=== PATIENT | male | born 1995 | race Caucasian/White ===

== ENCOUNTER 2016-08-31 06:30 | Inpatient (IN) | payer BC ==
[2016-08-31 07:45] VITALS: BP 136/75
[2016-08-31] MEDS ORDERED: Morphine Sulfate 4 mg/mL 1mL Syr IVP PRN (07:46)
[2016-08-31 08:22] LABS: % BASOPHILS 0.3 % (0.0-2.0); % EOSINOPHILS 0.1 % (0.0-5.0); % LYMPHOCYTES 5.5 % (20.0-50.0); % MONOCYTES 5.2 % (2.0-10.0); % NEUTROPHILS 88.9 % (40.0-80.0); HEMATOCRIT 42.7 % (39.0-49.0); MEAN CELL VOLUME 85.7 fl (80-99); MEAN PLATELET VOLUME 7.5 fl; NEUTROPHILE ABSOLUTE 14.2 Th/cmm (1.8-8.0); PLATELET COUNT 265 Th/cmm (150-400); RED BLOOD COUNT 4.99 Mil/cmm (4.30-5.70); RED CELL DISTRIBUTION WIDTH 11.6 % (11.5-20.0)
[2016-08-31 08:29] LABS: WHITE BLOOD COUNT 15.9 Th/cmm (4.8-10.8)
[2016-08-31 08:42] LABS: ALKALINE PHOSPHATASE 50 U/L (34-104); BILIRUBIN,TOTAL 0.7 mg/dL (0.3-1.0); BUN - UREA NITROGEN 16 mg/dL (7-25); CALCIUM SERUM 9.7 mg/dL (8.6-10.3); CARBON DIOXIDE 26.9 mEq/L (21.0-31.0); CHLORIDE 101 mEq/L (98-107); CREATININE - SERUM 0.8 mg/dL (0.7-1.3); GLUCOSE 113 mg/dL (70-105); POTASSIUM SERUM 3.9 mEq/L (3.5-5.1); SGOT 37 U/L (13-39); SGPT/ALT 32 U/L (7-52); SODIUM SERUM 134 mEq/L (136-145)
[2016-08-31] MEDS: Morphine Sulfate 2 mg/mL 1mL Syr IVP PRN ×2 (10:02→22:08)
[2016-08-31] MEDS: D5-0.45NS 1,000 ML IV SCH (10:10)
[2016-08-31 11:11] LABS: INR 1.09 (0.5-1.4); PROTHROMBIN TIME (TEST) 11.3 SECONDS (9.5-11.5)
[2016-08-31] MEDS: cefTRIAXone 1 GM in Sodium Chloride 0.9% 50 ML IV SCH (13:27)
[2016-08-31 15:12] LABS: URINE BILIRUBIN NEGATIVE (NEGATIVE); URINE BLOOD TRACE (NEGATIVE); URINE COLOR YELLOW; URINE GLUCOSE (UA) NEGATIVE (NEGATIVE); URINE KETONE NEGATIVE (NEGATIVE); URINE PROTEIN NEGATIVE (NEGATIVE); URINE UROBILINOGEN 0.2 E.U./dL (0.2 - 1.0)
[2016-08-31 15:13] LABS: URINE BACTERIA NONE SEEN /hpf (NONE SEEN); URINE EPITHELIAL CELLS NONE SEEN /lpf (FEW); URINE RBC NONE SEEN /hpf (0-5); URINE WBC NONE SEEN /hpf (0-5)
[2016-08-31 15:26] LABS: AMPHETAMINE URINE NEGATIVE (NEGATIVE); BARBITURATES URINE NEGATIVE (NEGATIVE); METHADONE URINE NEGATIVE (NEGATIVE)
[2016-08-31] MEDS ORDERED: Midazolam 1mg/ml 2 ml vial IV ONE (15:53)
[2016-08-31] MEDS ORDERED: fentaNYL Citrate 100 mcg/2mL Vial ONE ×2 (16:04→19:56)
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
[2016-08-31] MEDS ORDERED: Meperidine 50 mg/mL 1mL Syr ONE (17:37)
[2016-08-31] MEDS ORDERED: Lactated Ringer 1,000 ML IV SCH (17:45)
[2016-08-31] MEDS ORDERED: Lidocaine 2% Vial 20 mL Vial ONE (19:50)
[2016-08-31] MEDS ORDERED: Meperidine 25 mg/mL 1mL Syr ONE (20:41)
[2016-08-31] MEDS: Meperidine 25 mg/mL 1mL Syr IVP PRN ×2 (20:42→20:54)
[2016-08-31] MEDS ORDERED: ceFAZolin 1 GM in Sodium Chloride 0.9% 50 ML IV SCH (21:45)
--- NOTE | 2016-08-31 21:58 | Admit Criteria Form ---
Admit Criteria Forms - Admit Criteria Diagnosis: MUSCULOSKELETAL DISEASE [facility] Clinical Indications for Admission to Inpatient Care (Place 'X' for any and all applicable criteria): Hospital admission is needed for appropriate care of the patient because of 1 or more of the following: [X]I. Fracture, dislocation, or other musculoskeletal injury requiring inpatient care(medical) as indicated by 1 or more of the following(4)(5)(6)(7) [ ]a) Vertebral fracture requiring observation for instability or neurologic compromise (8) [ ]b) Compartment syndrome (proven or cannot be ruled out during observation level of care) (9) [ ]c) Limb-threatening injury [ ]d) Major injury requiring inpatient stabilization such as traction initiation or external fixation before internal fixation or closure of complex or open fracture [X]e) Major injury requiring inpatient treatment after emergency or observation level care (as appropriate) [ ]f) Severe pain requiring acute inpatient management [ ]g) Injury with suspicion of abuse or neglect (eg., child, dependent elderly) [ ]II. Newly diagnosed or suspected bone, joint, or orthopedic device infection (e.g., osteomyelitis, septic arthritis) needing 1 or more of the following(1)(2)(3) [ ]a) IV antibiotics that cannot be initiated in other than inpatient setting (e.g., patient too unstable or home infusion not available) [ ]b) Device removal or replacement [ ]c) Bone or soft tissue debridement [ ]d) Joint drainage (drain placement or repetitive aspirations) [ ]III. Severe rheumatologic disease (e.g., systemic lupus erythematosus, rheumatoid arthritis) with complications or comorbidities (Also use Optimal Recovery Care Criteria or General Recovery Criteria as appropriate on the basis of predominant condition), including 1 or more of the following( 10)(11)(12)(13) [ ]a) Severe infection (e.g., HOME OFFICE CLAIM SPECIALIST infection, sepsis) (14) [ ]b) Respiratory complications, including 1 or more of the following : [ ]i) Pleural effusion with respiratory compromise [ ]ii) Pulmonary hypertension with congestive failure [ ]iii) Respiratory failure [ ]iv) Pulmonary hemorrhage (15) [ ]c) Hematologic disease, including 1 or more of the following: [ ]i) Coagulopathy with bleeding [ ]ii) Thrombosis with hypercoagulable state [ ]iii) Thrombotic thrombocytopenic purpura [ ]d) Cerebritis with seizures, psychosis, or other severe abnormalities [ ]e) Vertebral destruction with monitoring needed for cervical myelopathy& possible respiratory compromise [ ]f) Exacerbation that requires inpatient treatment (e.g., intravenous immunosuppression) (16) [ ]g) Acute renal failure [ ]h) Cerebritis with seizures, psychosis, Altered mental status, or other neurologic abnormalities [ ]i) Pericardial effusion with tamponade [ ]j) Vertebral destruction, with monitoring needed for cervical myelopathy and possible respiratory compromise [ ]IV. Severe vasculitis with complications or comorbidities (Also use Optimal Recovery Care Criteria General Recovery Criteria as appropriate on the basis of predominant condition), including 1 or more of the following(11)(12)(17)(18)(19)(20) [ ]a) Exacerbation that requires inpatient treatment (e.g., intravenous immunosuppression) (19)(21) [ ]b) Pulmonary hemorrhage (15) [ ]c) HOME OFFICE CLAIM SPECIALIST vasculitis with seizures, psychosis, Altered mental status that is severe or persistent, or other severe abnormalities (22) [ ]d) Cerebral infarction [ ]e) Gastrointestinal ischemia [ ]f) Gangrene or threatened amputation [ ]g) Renal failure (16) [ ]h) Other significant complications of vasculitis ( eg., tissue or organ ischemia, organ dysfunction ) [ ]V. Severe myopathy as indicated by 1 or more of the following (28)(29) [ ]a) New onset of airway compromise or inability to swallow [ ]b) Respiratory deterioration with observation needed for impending respiratory failure [ ]c) Exacerbation that requires inpatient treatment (e.g., intravenous immunosuppression) [ ]. Severe crystal gout (arthropathy) indicated by 1 or more of the following (23)(24) [ ]a) Severe pain requiring acute inpatient management [ ]b) Exacerbation that requires inpatient treatment (e.g., intravenous treatment) [ ]VII.Rhabdomyolysis and 1 or more of the following (25)(26)(27) [ ]a) Acute renal failure [ ]b) Need for intravenous hydration after emergency or observation level care (as appropriate) [ ]c) Inability to maintain oral hydration [ ]d) Change in mental status [ ]e) Electrolyte abnormality that remains after emergency or observation level care (as appropriate) [ ]VIII Post amputation complication, as indicated by ANY ONE of the following [ ]a) Infection [ ]b) Dehiscence [ ]c) Myodesis failure [ ]IX. Severe pain requiring acute inpatient management due to musculoskeletal condition [ ]X. Musculoskeletal Disease and ALL of the following: [ ]a) Symptom or finding for which emergency and observation care have failed or are not considered appropriate (Use General Criteria: Observation Care as appropriate) [ ]b) Presence of ANY ONE of the following [ ]i) A General Admission Criteria [ ]ii) A Pediatric General Admission Criteria The [facility] content created by [facility] has been revised. The portions of the content which have been revised are identified through the use of italic text or in bold, and [facility] has neither reviewed nor approved the modified material. All other unmodified content is copyright [facility]. Please see references footnoted in the original [facility] edition 2016 Admit Criteria Met?: Yes
[2016-08-31 22:06] LABS: MEAN PLATELET VOLUME 7.3 fl
[2016-08-31 22:08] LABS: HEMATOCRIT 39.7 % (39.0-49.0); MEAN CELL VOLUME 87.1 fl (80-99); MEAN CORPUSCULAR HEMOGLOBIN 30.6 pg (26.0-30.0); MEAN CORPUSCULAR HGB CONC 35.1 pg (28.0-36.0); PLATELET COUNT 235 Th/cmm (150-400); RED BLOOD COUNT 4.56 Mil/cmm (4.30-5.70); RED CELL DISTRIBUTION WIDTH 11.6 % (11.5-20.0)
[2016-08-31 22:48] LABS: BAND NEUTROPHILE 1 % (0-10); NEUTROPHILS 96 % (40-80); PLATELET ESTIMATE ADEQUATE (NORMAL); TOTAL CELLS COUNTED 100
--- NOTE | 2016-09-01 01:48 | History & Physical ---
ADMIT DATE: 08/31/2016 The patient admitted from [place] ER for fracture tibia left lower extremity. The patient is currently undergoing surgery. [facility]# [id number]
[2016-09-01] MEDS: Morphine Sulfate 2 mg/mL 1mL Syr IVP PRN ×3 (01:54→10:23)
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
[2016-09-01 07:01] LABS: % EOSINOPHILS 0.2 % (0.0-5.0); % LYMPHOCYTES 4.7 % (20.0-50.0); % MONOCYTES 7.1 % (2.0-10.0); HEMATOCRIT 36.6 % (39.0-49.0); HEMOGLOBIN 12.7 gm/dL (13.2-17.3); MEAN CELL VOLUME 87.5 fl (80-99); MEAN CORPUSCULAR HEMOGLOBIN 30.4 pg (26.0-30.0); MEAN CORPUSCULAR HGB CONC 34.8 pg (28.0-36.0); MEAN PLATELET VOLUME 7.8 fl; NEUTROPHILE ABSOLUTE 14.7 Th/cmm (1.8-8.0); PLATELET COUNT 231 Th/cmm (150-400); RED BLOOD COUNT 4.19 Mil/cmm (4.30-5.70); RED CELL DISTRIBUTION WIDTH 11.5 % (11.5-20.0)
[2016-09-01] MEDS: APAP/Codeine 300 mg/30 mg Tab PO PRN ×2 (07:50→13:51)
[2016-09-01 07:53] LABS: WHITE BLOOD COUNT 16.7 Th/cmm (4.8-10.8)
--- NOTE | 2016-09-01 09:17 | Diagnostic Imaging Report ---
Fluoroscopy was utilized for facilitation of internal fixation of the left tibia. Please refer to the surgical report for complete details. The total fluoroscopic time for this exam is 3 minutes and 51 seconds.
[2016-09-01] MEDS: D5-0.45NS 1,000 ML IV SCH ×2 (10:24→10:31)
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
[2016-09-01] MEDS: cefTRIAXone 1 GM in Sodium Chloride 0.9% 50 ML IV SCH (12:39)
[2016-09-01] MEDS ORDERED: Hydrocodone/APAP 5mg/325mg Tab PO PRN (14:53)
--- NOTE | 2016-09-01 15:18 | Operative Report ---
DATE OF SURGERY: 09/01/2016 SURGEON: Hesham Gaston M.D. CURING PRESS MAINTAINER: Nurse. DESCRIPTION OF PROCEDURE: After the patient was given general anesthesia, the patient was positioned on the OR table with the pillows under the thigh so as to make the left leg hang down. The part was scrubbed and was draped in an aseptic manner. The patient was given prophylactic antibiotic. After this, incision was made on the medial side at the ligamentum patellae going to the inferomedial portion of the patella on the retinacula. Skin, superficial and deep fascia were cut. Ligamentum patellae was retracted and the slope on the proximal tibia in the midline was selected and with the drill hole, a small hole was made and then with a larger instrument, a bigger hole was made and it was drilled and after this, the guidewire was passed from the proximal tibia under the fluoroscopy control going into the proximal part then through the fracture and right down to the distal end of the clavicle above the ankle and it was seen under fluoroscopy, both AP and lateral, so as to see it the good position and after this, the reaming was started and then reaming was done with a 9 mm, 9.5, 10 and 10.5, and all the procedure was done under fluoroscopy, AP and lateral. Now it was decided to put 8.5 mm tl, which was 35 cm and over the guide, it was hammered it down keeping it watch with the fluoroscopy as the tl was going down from the proximal part through the fracture, which was comminuted and there were few fragments and into the distal part. When it was found to be satisfactory, keeping it in rotation and then the distal end of the tl was above the ankle, then the guidewire was removed and through the ____, 2 screws were put in an oblique fashion, one on the lateral side, which was 60 mm long and one on the medial side which about 55 mm long and they were all drilled and ____ with the depth gauge, we found out the length of it and it was decided to put 6 mm tl from the lateral side and 55 mm on the medial side, so as to lock the proximal part of the tl. After this, a final position was seen in the AP, lateral, distal, proximal and at the fracture site. They were all found to be satisfactory. The wound was thoroughly irrigated. Bleeding points were coagulated. The deep sutures for the proximal part, so as to put the ligamentum patellae into the position and then repaired the retinacula, 1-0 Vicryl sutures were applied and then after that, there were 2 Vicryl sutures were applied and the skin was stitched with interrupted 3-0 nylon sutures. This patient had at the affected side skin laceration. The bone did not come out, but it was lacerated and it was thoroughly irrigated before starting the operation with antibiotic solution and was cleaned it up and then Vicryl sutures, 2-0 was applied so as to approximate and then the skin with 3-0 nylon interrupted sutures. After this, a bulky dressing was applied starting right above the ankle, above the knee and then a long knee immobilizer was put it in. The patient was transferred to the recovery room in a satisfactory condition. I used and Nephew tl, which was 8.5 mm in diameter and 350 mm in the length and with the 2 screws, there were also and Nephew cortical screws in the proximal part, which were put in it, so as to lock the proximal part of the tl. JOB# [id number]
[2016-09-01] MEDS ORDERED: Vancomycin HCl 1.5 GM in Sodium Chloride 0.9% 500 ML IV SCH (17:00)
--- NOTE | 2016-09-01 19:45 | Cardiology ---
09/01/2016 ECHOCARDIOGRAM REFERRING PHYSICIAN: Dr. Evgeny Escudero. M-mode measurements are as follows: Aortic root dimension in diastole 3.4 cm and aortic valve systolic separation is 2.1 cm. Left atrial dimension in systole is 3.4 cm. EP septal separation of mitral valve is 0.53 cm. Mitral valve EA ratio is 1.5. Left ventricular dimension in diastole is 4.9 cm and in systole is 3.3 cm with ejection fraction of 60%. Interventricular septal thickness in diastole is 1.2 cm and LV posterior wall thickness in diastole 1.1 cm. Doppler measurements are as follows that left ventricular outflow tract Vmax is 1.03 meter per second and aortic valve Vmax is 1.39 meter per second. Aortic valve systolic pressure gradient is 7.7 mmHg. Right ventricular systolic pressure is 41.5 mmHg. Doppler and color Doppler did not reveal any significant valvular dysfunction in diastole or in systole. M-mode and 2D shows that LV dimension and second wall motion are normal. The right ventricle is normal in dimension, but right atrium looks dilated. The left atrium is normal in dimension. All the valves are normal in thickness and motion in diastole as well as in systole. Doppler and color Doppler shows that there is 1+ mitral, tricuspid, and pulmonic regurgitation, but I doubt any hemodynamic significance. CONCLUSION: 1. LV dimension and second wall motion are normal with ejection fraction of 60%. 2. Right atrium looks dilated. There is mild pulmonary hypertension. 3. Intraventricular septum is slightly hypertrophied. 4. Otherwise, normal study for the age. JOB# [id number]
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
--- NOTE | 2016-09-02 07:09 | Progress Notes ---
DATE: 09/01/2016 SUBJECTIVE: The patient is awake and alert. The patient is status post ORIF of left tibial fracture day #1. The patient denies any acute complaints. PHYSICAL EXAMINATION: VITAL SIGNS: Temperature is 98.4, pulse 76, blood pressure 128/80, respiratory rate 17, and O2 sat is 98% on room air. CARDIOVASCULAR: S1 and S2. RESPIRATORY: Clear. ABDOMEN: Soft and positive bowel sounds. LABORATORY DATA: Hematology: WBC of 16.7, hemoglobin 12.7, hematocrit 36.6, and platelet count of 231,000, 88% neutrophils, and 4% lymphocytes. Urinary screen positive for opioids and cannabinoids. RADIOLOGY: No new radiology results. ASSESSMENT: 1. Status post open reduction internal fixation left tibia. 2. History of cannabinoid abuse. 3. Leukocytosis (improved). 4. Anemia. PLAN: Continue current medication and treatment. Obtain labs in a.m. Awaiting culture results. Further consultation per recommendations. Awaiting ID consultation. [facility]# [id number]
--- NOTE | 2016-09-16 01:47 | Discharge Summary ---
DATE OF DISCHARGE: 09/01/2016 DISCHARGE DIAGNOSES: 1. Status post open reduction and internal fixation, left tibia. 2. History of cannabinoid abuse. 3. Leukocytosis. 4. Anemia. HOSPITAL COURSE: The patient is a 20-year-old male who was transferred from [facility]. The patient was admitted with the diagnosis of comminuted fracture of tibia on the left side and abnormal EKG. The patient was admitted to Med-Surg Unit. Cardiology consultation was obtained from Dr. Olivia Escudero regarding the abnormal EKG. Orthopedic consultation was obtained from Dr. Gaston. The patient underwent surgery by Dr. Gaston on 09/01/2016. The patient underwent open reduction and internal fixation. the patient was found to have leukocytosis. ID consultation was obtained from Dr. Scott Malagon. On recommendation, the patient was started on Rocephin. Panculture was obtained and was negative. The patient was discharged on 09/01/2016. The patient was arranged for outpatient physical therapy and also the patient was given prescription for pain medications. JOB# [id number]
== END 2016-09-01 16:45 | DRG 494 ==
LOC: MSI 06:30
PROVIDERS: ADMIT Preventive Medicine Preventive Medicine/Occupational Environmental Medicine; ATTEND Preventive Medicine Preventive Medicine/Occupational Environmental Medicine
PROC: 0QSH04Z Reposition Left Tibia with Internal Fixation Device, Open Approach (ICD-10-PCS; principal; 2016-08-31)
DX: S82.252A Displaced comminuted fracture of shaft of left tibia, initial encounter for closed fracture (principal); D64.9 Anemia, unspecified; F12.90 Cannabis use, unspecified, uncomplicated; S01.81XA Laceration without foreign body of other part of head, initial encounter; D72.829 Elevated white blood cell count, unspecified; V49.9XXA Car occupant (driver) (passenger) injured in unspecified traffic accident, initial encounter; I45.10 Unspecified right bundle-branch block; Y93.89 Activity, other specified; Y92.89 Other specified places as the place of occurrence of the external cause; Y99.8 Other external cause status; Z72.89 Other problems related to lifestyle
CPT/HCPCS: 36415-UA; 76000-TC; 80053-TC; 80307; 81001-TC; 84484-TC; 85007-TC; 85025-TC; 85027-TC; 85610-TC; 85652-TC; 86141-TC; 93005; 97530; J0690; J0696; J2001; J2250; J2270; J2405; J2704; J3370; J7040; X3904; X5716; X6024; X6026; X6206; X6494; X6776; Z7610